=== PATIENT | male | born 1980 | race Caucasian/White ===

== ENCOUNTER 2018-02-05 20:11 | Emergency (ER) | payer OTHER ==
[2018-02-05 20:27] VITALS: BP 127/80; PULSE 75; RESP 18; TEMP 98.2
== END 2018-02-05 21:23 ==
LOC: EC 20:11
DX: Z02.89 Encounter for other administrative examinations (principal)

== ENCOUNTER 2018-02-05 21:55 | Emergency (ER) | payer OTHER ==
[2018-02-05 22:22] VITALS: BP 130/87; PULSE 90; RESP 18; TEMP 97.8
== END 2018-02-05 22:40 | disposition home or self-care (01) ==
LOC: EC 21:55
DX: Z02.89 Encounter for other administrative examinations (principal)

== ENCOUNTER → 2022-04-12 | Outpatient (CLI) | payer BC ==
--- NOTE | 2022-04-12 11:20 | US ---
EXAMINATION TYPE: US abdomen complete DATE OF EXAM: 04/12/2022 COMPARISON: NONE CLINICAL HISTORY: R10.9 ABDOMINAL PAIN. Pain. EXAM MEASUREMENTS: Liver Length: 14.9 cm Gallbladder Wall: 0.23 cm CBD: 0.34 cm Spleen: 10.1 cm Right Kidney: 10.7 x 5.3 x 4.3 cm Left Kidney: 11.1 x 5.7 x 4.7 cm Exam limited due to gas. Pancreas: Slightly limited due to gas. Liver: Appears wnl Gallbladder: Appears distended measuring 10.7 cm in length. Internal echoes seen within the gallbladd er. Multiple hyperechoic foci seen within the gallbladder. Hyperechoic area also seen that appears to be attached to the gallbladder wall: 0.4 x 0.5 x 0.5 cm. Evidence for sonographic Thomas's sign: No CBD: Portions seen appear wnl Spleen: Appears wnl Right Kidney: Renal collecting sytem/pelvis appears prominent. Left Kidney: Renal pelvis appears prominent. Upper IVC: Appears wnl Abd Aorta: Iliacs are obscured. Proximal aorta appears ectatic measuring 2.5 cm AP. No aneurysm in the visualized abdominal aorta. IVC seen are hepatic dome. Visualized portion of pancr eas unremarkable. Visualized liver within normal limits. Gallbladder has distended margins with depen dent sludge and/or small stones. Suspect 4 mm polyp. Prominent fold. No abnormal wall thickening or a djacent fluid. Sonographic Thomas sign negative. Prominence of the bilateral renal pelvises with some calyceal distention. Spleen is normal in size. IMPRESSION: Mild bilateral hydronephrosis may be present. Further workup advised. Gallbladder sludge and/or small stones without ultrasound evidence for acute cholecystitis.
== END | disposition home or self-care (01) ==
LOC: RADUSWWP 10:25
PROVIDERS: ATTEND Internal Medicine Geriatric Medicine
DX: N13.30 Unspecified hydronephrosis (principal)
CPT/HCPCS: 76700

== ENCOUNTER 2022-09-04 09:14 | Day surgery (SDC) | payer BC ==
--- NOTE | 2022-09-04 08:58 | P.GSHP ---
History of Present Illness H&P Date: 09/04/22 CHIEF COMPLAINT: Cholecystitis HISTORY OF PRESENT ILLNESS: The patient is a 42-year-old male who presents with history of epigastric including right upper quadrant abdominal pain. He underwent diagnostic studies for the gallbladder. Separately his clinical picture was consistent with cholecystitis. Now he presents for surgical intervention. PAST MEDICAL HISTORY: Please see list PAST SURGICAL HISTORY: Please see list MEDICATIONS: Please see list ALLERGIES: Denies. SOCIAL HISTORY: No illicit drug use or recent tobacco use FAMILY HISTORY: Pertinent for gallbladder disease REVIEW OF ORGAN SYSTEMS: CONSTITUTIONAL: No reports of fevers or chills. HEENT: Denies any troubles with the vision or hearing. ENDOCRINE: No reports of hypothyroidism. No diabetes. RESPIRATORY: No recent pneumonias. CARDIOVASCULAR: Denies chest pain or palpitations GI: No blood in stools or constipation. MUSCULOSKELETAL: Has occasional joint pain including back pain. NEURO: No seizure disorders or headaches. No recent stroke. PSYCH: No depression or suicidal ideation. HEMATOLOGIC: No personal or family history of DVTs or pulmonary emboli. PHYSICAL EXAM: VITAL SIGNS: Afebrile vital signs stable GENERAL: Well-developed pleasant male in no acute distress. HEENT: No scleral icterus. Extraocular movements grossly intact. Moist buccal mucosa. NECK: Supple without lymphadenopathy. CHEST: Unlabored respirations. Equal bilateral excursions. CARDIOVASCULAR: Regular rate regular rhythm rhythm. Distal 2+ pulses. ABDOMEN: Soft, nondistended. Tender along the epigastrium and right upper quadrant. MUSCULOSKELETAL: No clubbing, cyanosis, or edema. NEURO : No focal or lateralizing signs. Cranial nerves II-12 within normal limits. PSYCH: Alert and oriented to person, place and time. SKIN: Well perfused. Good skin turgor. ASSESSMENT: 1. Epigastric and right upper quadrant abdominal pain 2. Chronic cholecystitis PLAN: 1. Will need a robotic cholecystectomy possible open. Benefits and risks were described. 2. Heparin for DVT prophylaxis 5000 units. 3. Antibiotic prophylaxis. 4. Recommend CBC and CMP on day of procedure 5. Indocyanine green for biliary assessment Past Medical History Past Medical History: No Reported History History of Any Multi-Drug Resistant Organisms: None Reported Past Surgical History: No Surgical Hx Reported Past Anesthesia/Blood Transfusion Reactions: No Reported Reaction Additional Past Anesthesia/Blood Transfusion Reaction / Comment(s): HAS NEVER HAD GENERAL ANESTHESIA. Past Psychological History: No Psychological Hx Reported Smoking Status: Never smoker Past Alcohol Use History: Occasional Past Drug Use History: None Reported - Past Family History Mother Family Medical History: No Reported History Medications and Allergies Home Medications Medication Instructions Recorded Confirmed Type Ibuprofen [Motrin Ib] 200 mg PO Q6H PRN 08/31/22 08/31/22 History Allergies Allergy/AdvReac Type Severity Reaction Status Date / Time No Known Allergies Allergy Verified 08/31/22 15:51
[~2022-09-04 09:14] MED LIST: ACETAMINOPHEN TAB 500 MG TAB PO STA; DEXAMETHASONE SOD PHOSPHATE 4 MG/ML 1 ML VIAL IV ONE; GABAPENTIN 300 MG CAP PO STA; HEPARIN SODIUM,PORCINE/PF 5,000 UNIT/0.5 ML SYRINGE SQ PRN; HYDROmorphone 0.5 MG/0.5 ML SYRINGE IVP PRN; INDOCYANINE GREEN 25 MG VIAL IV STA; LACTATED RINGERS 1,000 ML IV SCH; LIDOCAINE 1% (10MG/ML) FOR IV START INTRADERMA PRN; ONDANSETRON 4 MG/2 ML VIAL IVP ONE
[2022-09-04 09:58] LABS: Basophils % (A) 1 %; Eosinophils # (A) 0.1 k/uL (0-0.7); Eosinophils % (A) 2 %; HCT 42.5 % (39.0-53.0); HGB 15.2 gm/dL (13.0-17.5); Lymphocytes # (A) 1.7 k/uL (1.0-4.8); Lymphocytes % (A) 35 %; MCH 32.3 pg (25.0-35.0); MCHC 35.7 g/dL (31.0-37.0); MCV 90.3 fL (80.0-100.0); Mean Platelet Volume 7.9; Monocytes # (A) 0.3 k/uL (0-1.0); Monocytes % (A) 6 %; Neutrophils # (A) 2.6 k/uL (1.3-7.7); Neutrophils % (A) 54 %; Platelet Count 201 k/uL (150-450); RDW 13.3 % (11.5-15.5); WBC 4.9 k/uL (3.8-10.6)
[2022-09-04 10:20] LABS: ALT 38 U/L (4-49); AST 30 U/L (17-59); African American GFR (CKD) >90 (>60 ml/min/1.73 sqM); Albumin 4.6 g/dL (3.5-5.0); Alkaline Phosphatase 58 U/L (38-126); Anion Gap 8 mmol/L; Blood Urea Nitrogen 16 mg/dL (9-20); Calcium 8.9 mg/dL (8.4-10.2); Carbon Dioxide 29 mmol/L (22-30); Chloride 105 mmol/L (98-107); Glucose 87 mg/dL (74-99); Non-African American GFR(CKD) >90 (>60 ml/min/1.73 sqM); Potassium 3.9 mmol/L (3.5-5.1); Sodium 142 mmol/L (137-145); Total Bilirubin 0.5 mg/dL (0.2-1.3); Total Protein 7.6 g/dL (6.3-8.2)
[2022-09-04] MEDS ORDERED: GLYCOPYRROLATE 0.2 MG/ML 2 ML VIAL ONE (10:25)
[2022-09-04] MEDS ORDERED: ePHEDrine 50 MG/ML 1 ML VIAL ONE (10:25)
[2022-09-04] MEDS ORDERED: NEOSTIGMINE 1 MG/ML 10 ML VIAL ONE (10:25)
[2022-09-04] MEDS ORDERED: ROCURONIUM 10 MG/ML (5 ML VIAL) IV ONE (10:25)
[2022-09-04] MEDS ORDERED: ESMOLOL 100 MG/10 ML VIAL ONE (10:25)
[2022-09-04] MEDS ORDERED: SUCCINYLCHOLINE CHLORIDE 200 MG/10 ML VIAL IV ONE (10:25)
[2022-09-04] MEDS ORDERED: fentaNYL (PF) 50 MCG/ML 2 ML AMP ONE (10:25)
[2022-09-04] MEDS ORDERED: LIDOCAINE 2% INJ 20 MG/ML (2 ML VIAL) ONE (10:25)
[2022-09-04] MEDS ORDERED: PHENYLEPHRINE-0.9% NACL SYG 1,000 MCG/10 ML SYRINGE ONE (10:25)
[2022-09-04] MEDS ORDERED: PROPOFOL 10 MG/ML 20 ML VIAL IV ONE (10:25)
[2022-09-04] MEDS ORDERED: MIDAZOLAM 2 MG/2 ML VIAL ONE (10:25)
[2022-09-04] MEDS ORDERED: BUPIVACAIN-EPI 0.25%-1:200,000 30 ML VIAL SQ ONE ×2 (10:29→11:03)
[2022-09-04] MEDS ORDERED: LACTATED RINGERS 1,000 ML IV ONE (11:24)
[2022-09-04 11:55] VITALS: TEMP 97.4
--- NOTE | 2022-09-04 12:30 | P.OP ---
Date of Procedure: 09/04/22 Description of Procedure: SURGEON: CHRISTI JIN MD PREOPERATIVE DIAGNOSES: 1. Chronic cholecystitis 2. Right upper quadrant abdominal pain POSTOPERATIVE DIAGNOSES: 1. Chronic cholecystitis 2. Right upper quadrant abdominal pain 3. Peritoneal adhesions, right upper quadrant OPERATION: 1. Robotic-assisted da Fazal Xi laparoscopic cholecystectomy, multiport with FIREFLY 2. Robotic-assisted da Fazal Xi laparoscopic lysis of adhesion ESTIMATED BLOOD LOSS: 5 mL. SPECIMENS REMOVED: Gallbladder. COMPLICATIONS: None. OPERATIVE FINDINGS: 1. Greater omentum to epigastric adhesions to falciform ligament, lysed INDICATIONS: The patient is a 42-year-old male who presents with chronic cholecystitis. Robotic assisted laparoscopic approach was described. Benefits and risks of the procedure including but not limited to bleeding, infection, injury to the biliary tree was described. Informed consent was obtained. DESCRIPTION OF PROCEDURE: Patient was brought to the operating room, placed in supine position. After general induction, the abdomen had been prepped and draped in standard sterile fashion. The robotic da Fazal XI system was primed. After a timeout protocol was performed, the patient had been prepped and draped in standard sterile fashion. The patient was injected with indocyanine green. A 5 mm 0 degrees laparoscopic trocar entry was performed along the left upper quadrant. The abdomen insufflated to 15 mmHg pressure which was tolerated well. Diagnostic laparoscopy demonstrated no injury to bowel viscera or mesentery. The liver surface was unremarkable. Next, two 8 mm robotic ports were placed along the right upper abdomen. The camera 8-mm port was maintained along the epigastrium. Another 8 mm port was placed along the left upper abdominal wall after exchanging the 5 mm port. Please note that the ports were placed at least 10 to 15 cm away from the target anatomy of the gallbladder. The robot was docked along the left lateral abdomen. The patient was repositioned in reverse Trendelenburg position. Using a grasper for arm 3, a grasper for arm 4, including hook cautery for arm 1, the robotic system was docked and primed as described. Instruments were interchanged by the assistant activities director including hook cautery, Bovie cautery and clip appliers. I had sat at the console. Greater omentum and adhesions to the epigastrium and falciform ligament was identified and divided using the cautery. At the hepatic fossa, dome down t echnique was performed from the fundus to the infundibulum. Next attention was brought to the infundibulum and cystic structures. The infundibulum and cystic duct were dissected free from surrounding tissues. The cystic duct was isolated. FIREFLY was used to identify the cystic artery and cystic structures. A critical view of safety was obtained. Large PLASTIC clips were used throughout the entire case. Using a clip railroad design consultant, 2 clips were placed at the junction of the infundibulum and cystic duct. The cystic duct was divided between clips. Next, the cystic artery was similarly clipped and cauterized. Electro-Bovie cautery was used to remove the gallbladder from the hepatic fossa. Hemostasis was checked and found to be adequate. The robot was undocked. I re-scrubbed into the case. Using a 10 mm Endo Catch bag via the left upper quadrant incision, the specimen was removed from the abdominal cavity. All pneumoperitoneum instruments were evacuated from the abdominal cavity. The incisions were reapproximated using 4-0 Monocryl in an interrupted subcuticular fashion. Fascial defects were less than 8 mm in size. Please note along the trocar sites, local anesthetic was placed as a field block prior to insertion of all instruments. Liquid glue was applied to the skin. At the end of the procedure needle, sponge, and instrument count had been verified correct by the compliance field technician. The patient was transferred to postanesthesia care unit in stable condition. Intraoperative films were shared with the patient's family. Plan - Discharge Summary Discharge Rx Participant: No New Discharge Prescriptions: New Ibuprofen [Motrin] 600 mg PO Q8HR PRN #30 tab PRN Reason: Pain Simethicone [Gas-X] 125 mg PO AC-TID PRN #20 capsule PRN Reason: Pain Acetaminophen Tab [Tylenol Tab] 1,000 mg PO Q6HR PRN #30 tablet PRN Reason: Pain Discontinued Ibuprofen [Motrin Ib] 200 mg PO Q6H PRN PRN Reason: Pain Discharge Medication List Acetaminophen Tab [Tylenol Tab] 1,000 mg PO Q6HR PRN #30 tablet 09/04/22 [Rx] Ibuprofen [Motrin] 600 mg PO Q8HR PRN #30 tab 09/04/22 [Rx] Simethicone [Gas-X] 125 mg PO AC-TID PRN #20 capsule 09/04/22 [Rx] Follow up Appointment(s)/Referral(s): Christi Jin MD [STAFF PHYSICIAN] - 09/12/22 (TELE[facility]ALTH 8 am to 9 am) Patient Instructions/Handouts: Laparoscopic Cholecystectomy (DC), Low Fat Diet (DC), *Surgery [facility] - Managing Your Pain After Surgery Without Opioids Activity/Diet/Wound Care/Special Instructions: Recommend low-fat diet for the next 2 days. No lifting over 10 pounds in 2 weeks until Oct 03. January shower. No bath tub soaks for two weeks until Sep 18 Diet as tolerated. Use Tylenol, simethicone and ibuprofen or Aleve scheduled for the next 24-48 hours for best pain relief. Use ice along incisions for today to prevent swelling. Discharge Disposition: HOME SELF-CARE
[2022-09-04 12:50] VITALS: BP 119/80; PULSE 69; RESP 20
== END 2022-09-04 13:25 | disposition home or self-care (01) ==
LOC: OR 09:14
PROVIDERS: ATTEND Surgery Plastic and Reconstructive Surgery
DX: K80.10 Calculus of gallbladder with chronic cholecystitis without obstruction (principal); K66.0 Peritoneal adhesions (postprocedural) (postinfection); F10.90 Alcohol use, unspecified, uncomplicated; Z83.79 Family history of other diseases of the digestive system; Z79.1 Long term (current) use of non-steroidal anti-inflammatories (NSAID)
CPT/HCPCS: 88304; 80053; 85025; 47562; J2250; J0330; J1100; J2710; J0690; J2405; J3010; J2370; J2704; J1644; J2001

== ENCOUNTER → 2022-10-24 | Outpatient (CLI) | payer BC ==
--- NOTE | 2022-10-24 17:39 | US ---
EXAMINATION TYPE: US kidneys/renal and bladder DATE OF EXAM: 10/24/2022 COMPARISON: Abdominal ultrasound 04/12/2022 CLINICAL HISTORY: N13.30 UNSPECIFIED HYDRONEPHROSIS. EXAM MEASUREMENTS: Right Kidney: 10.6 x 4.1 x 5.3 cm Left Kidney: 9.8 x 5.5 x 4.5 cm Right Kidney: wnl Left Kidney: Mild pelviectasis Bladder: wnl Bilateral Jets seen: Yes There is no evidence for hydronephrosis at this point in time. Mild left pelviectasis. No nephrolithi asis is seen. No masses are identified. The urinary bladder is anechoic. Bilateral ureteral jets a re seen. IMPRESSION: Mild left pelviectasis without evidence for hydronephrosis of either kidney. No nephrolithiasis.
== END | disposition home or self-care (01) ==
LOC: RADUSWWP 15:54
PROVIDERS: ATTEND Urology
DX: N28.89 Other specified disorders of kidney and ureter (principal); N13.30 Unspecified hydronephrosis
CPT/HCPCS: 76770

== ENCOUNTER 2024-07-24 00:25 | Emergency (ER) | payer BC ==
[2024-07-24 00:55] VITALS: BP 143/82; PULSE 74; RESP 22; TEMP 98.2
[2024-07-24] MEDS: PROPARACAINE 0.5% OPHTH DROPS 15 ML BTL BOTH EYES STA (01:09)
[2024-07-24] MEDS: FLUORESCEIN STRIPS 1 MG STRIP BOTH EYES ONE (01:10)
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
[2024-07-24] MEDS: KETOROLAC 0.5% OPHTH DROPS 5 ML BTL BOTH EYES ONE (02:11)
[2024-07-24] MEDS: CIPROFLOXACIN 0.3% OPHTH SOLN 5 ML BTL BOTH EYES ONE (02:11)
== END 2024-07-24 02:20 | disposition home or self-care (01) ==
LOC: EC 00:25
CPT/HCPCS: 99283